=== PATIENT | male | born 1970 | race Asian ===

== ENCOUNTER 2021-07-20 14:39 | Emergency (ER) | payer OTHER ==
[~2021-07-20] VITALS: Ht 172.7 cm; Wt 87.5 kg
[2021-07-20 15:41] LABS: PLATELET COUNT 254 K/uL (142-355)
[2021-07-20 15:45] LABS: POTASSIUM 4.2 mmol/L (3.6-5.2)
[2021-07-20 16:28] VITALS: BP 139/95; TEMP 98
== END 2021-07-20 16:28 | disposition home or self-care (01) ==
LOC: ED 14:39
PROVIDERS: Emergency Medicine Emergency Medical Services
DX: Z76.0 Encounter for issue of repeat prescription (principal); Z91.14 Patient's other noncompliance with medication regimen
CPT/HCPCS: 80048; 81000; 83036; 85027; 99283

== ENCOUNTER 2021-11-05 11:16 | Emergency (ER) | payer OTHER ==
[~2021-11-05] VITALS: Ht 172.7 cm; Wt 85.3 kg
[2021-11-05 11:24] VITALS: BP 153/91; TEMP 97.3
== END 2021-11-05 12:00 | disposition home or self-care (01) ==
LOC: ED 11:16
DX: M25.512 Pain in left shoulder (principal); Z87.828 Personal history of other (healed) physical injury and trauma; I10 Essential (primary) hypertension; X50.9XXA Other and unspecified overexertion or strenuous movements or postures, initial encounter; Y92.511 Restaurant or cafe as the place of occurrence of the external cause; F17.210 Nicotine dependence, cigarettes, uncomplicated
CPT/HCPCS: 99282